=== PATIENT | female | born 1970 | race Caucasian/White ===

== ENCOUNTER 2020-06-21 16:04 | Emergency (ER) | payer BC, SELFPAY ==
[2020-06-21] VITALS (7 sets, daily range): BP systolic 146–151; BP diastolic 77–85; PULSE 75–100; RESP 15–32; TEMP 36.3; O2SAT 91–98; BMI 30.2
--- NOTE | 2020-06-21 16:55 | ECG_ITS ---
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 Measurements Intervals Elizabeth Rate: 81 P: OR: -1 QRS: 18 QRSD: 100 T: 177 QT: 391 QTc: 455 Interpretive Statements Indeterminate rhythm because of baseline artifact MODERATE ST DEPRESSION [0.05+ mV ST DEPRESSION] Compared to ECG 04/15/2019 02:45:14 ST (T wave) deviation now present Sinus bradycardia no longer present Electronically Signed On 06-23-2020 19:31:00 CDT by Nicolás Cardoso M.D. [id number]
--- NOTE | 2020-06-21 16:55 | XRR_ITS ---
PROCEDURE INFORMATION: Exam: XR Chest, 1 View Exam date and time: 06/21/2020 4:58 PM Age: 50 years old Clinical indication: Cough and shortness of breath and wheezing; Additional info: Dyspnea TECHNIQUE: Imaging protocol: XR of the chest Views: 1 view. COMPARISON: CR Chest 1 [place] [id number] 04/14/2019 9:29 PM FINDINGS: Lungs: Unremarkable. No consolidation. Pleural space: Unremarkable. No pleural effusion. No pneumothorax. Heart/Mediastinum: Unremarkable. No cardiomegaly. Bones/joints: Unremarkable. XR/XR chest 1V portable [id number] IMPRESSION: No acute findings.
--- NOTE | 2020-06-21 17:12 | W.ED.SOB ---
Documented by User: Nasrin Aranda MD 06/23/20 13:23 HPI - SOB/Dyspnea General: Chief Complaint: Shortness of Breath/Dyspnea Stated Complaint: sob Time Seen by Provider: 06/21/20 16:33 History of Present Illness: HPI Narrative: This patient is a 50-year-old female who presents today with severe shortness of breath. She has a history of COPD but has never had anything like this before. 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 She says that she actually did the swab on 1 of her coworkers who was positive. She herself had a swab done on Tuesday, the same day that her symptoms started, and it was negative. She said there during the 15-minute bedside test at her facility. She is also seen her doctor on Tuesday and was put on doxycycline and prednisone. She is not getting any better. She uses an inhaler on a daily basis but does not have a rescue inhaler. She does not use oxygen at home. She checked her oxygen at work 1 night and it was in the mid 80s. Today on room air she is in the low 90s. She is clearly struggling. MD elicited complaint: shortness of breath, cough and chest pain (Soreness from breathing so hard) Pertinent past history: COPD Onset (ago): day(s) (6) Timing: constant Severity: severe Exacerbating factors: lying flat, exertion and talking Known history of: COPD Associated symptoms: Reports nausea; Deny abdominal pain, chest pain, fever(s) or vomiting Review of Systems General: Reports: 10 or more systems reviewed and unremarkable except in HPI and below Const: Reports: chills, fatigue and malaise; Denies: fever(s) Eyes: Denies: change in vision ENMT: Denies: odynophagia Card: Denies: chest pain or swelling of feet/ankles Resp: Reports: dyspnea, non-productive cough, wheezing and pain on inspiration; Denies: productive cough GI: Reports: nausea and diarrhea; Denies: abdominal pain or vomiting : Denies: flank pain or difficulty voiding Musc: Denies: neck pain or back pain Skin/Breast: Denies: rash Neuro: Denies: headache(s), numbness in extremities or weakness in extremities Daniel/Lymph: Denies: easy bruising or easy bleeding PFSH ED PFSH: Medical History ASHD (arteriosclerotic heart disease) CHF (congestive heart failure) Easy bruising Hyperlipidemia Hypertension Migraine Right carotid bruit Surgical History H/O resection of stomach H/O: hysterectomy Hx of appendectomy Hx of cholecystectomy Hx of spinal fusion Family History Other CHF (congestive heart failure) Social History Smoking and tobacco status: current every day smoker Alcohol intake: never Physical Exam Const: COMMON NORMALS: patient oriented x3, no limitations and alert GENERAL APPEARANCE: cooperative, in distress and anxious HENMT: HEAD & SCALP: normal to inspection FACE & SINUS: normal facial exam Eye: GENERAL EYE: appearance normal, both eyes and all related structures Neck/C-Spine: COMMON NORMALS: supple, no meningeal signs and no JVD Chest: COMMONS NORMALS: normal inspection of the chest Resp: COMMON NORMALS: normal respiratory effort and No use of accessory muscles AUSCULTATION: wheezes (Severe) throughout and diminished lung sounds Cardio: COMMON NORMALS: no JVD, regular rate, regular rhythm and No murmurs present (Cardio) RATE: regular rate RHYTHM: regular rhythm GI: COMMON NORMALS: Normal to inspection, nondistended, normoactive bowel sounds present, Soft to palpation and non-tender INSPECTION: Yes normal to inspection AUSCULTATION: Yes normoactive bowel sounds PALPATION: Yes Soft to palpation Back/Pelvis: COMMON NORMALS: thoracic and lumbar spine normal to inspection Extremity: COMMON NORMALS: normal to inspection Neuro: COMMON NORMALS: patient oriented x3, moves all extremities, no focal motor deficits and no sensory deficits noted SENSORIUM/ORIENTATION: Yes alert MENINGEAL SIGNS: Yes no meningeal signs Psych: COMMON NORMALS: mental status grossly normal, cooperative and normal affect Skin: COMMON NORMALS: no rashes or lesions noted and turgor normal GENERAL SKIN EXAM: no rashes or lesions noted and turgor normal Course Vital Signs: Vital signs: Vital Signs Temperature 97.3 F L 06/21/20 16:22 Pulse Rate 94 06/21/20 20:23 Respiratory Rate 15 06/21/20 20:23 Blood Pressure 149/77 06/21/20 20:23 Pulse Oximetry 91 06/21/20 20:23 MDM - SOB/Dyspnea Lab Data: Labs: Lab Results 06/21/20 06/21/20 06/21/20 Range/Units 17:33 17:33 17:33 WBC 19.0 H (4.0-10.0) 10^3/ uL RBC 4.47 (4.1-5.3) 10^6/u L Hgb 13.7 (11.5-15.3) g/dL Hct 42.5 (37.0-47.0) % MCV 95.1 (81-99) fL MCH 30.6 (28.0-34.0) pg MCHC 32.2 (30.0-36.0) g/dL RDW 14.3 (12.1-15.1) % Plt Count 259 (130-400) 10^3/c mm MPV 10.2 (7.4-10.4) fL Neut % (Auto) 79.7 % Lymph % (Auto) 10.1 % [place] % (Auto) 9.1 % Eos % (Auto) 0.1 % Baso % (Auto) 0.2 % Neut # (Auto) 15.11 H (1.8-7.7) 10^3/u L Lymph # (Auto) 1.9 (0.8-4.8) 10^3/u L [place] # (Auto) 1.7 H (0.2-0.9) 10^3/u L Eos # (Auto) 0.0 (0.0-0.8) 10^3/u L Baso # (Auto) 0.0 (0.0-0.1) 10^3/u L Nucleated RBC % (a uto) 0 % Nucleated RBCs # 0.0 /100WBC PT Cancelled INR Cancelled D-Dimer Cancelled Sodium Cancelled Potassium Cancelled Chloride Cancelled Carbon Dioxide Cancelled Anion Gap Cancelled BUN Cancelled Creatinine Cancelled GFR Calculation Cancelled Glucose Cancelled Calculated Osmolal ity Cancelled Lactic Acid Calcium Cancelled Magnesium Cancelled Total Bilirubin Cancelled AST Cancelled ALT Cancelled Alkaline Phosphata se Cancelled Troponin T Gen 5 n g/L (0-10) ng/L C-Reactive Protein Cancelled NT-Pro-B Natriuret Pep Cancelled Total Protein Cancelled Albumin Cancelled Globulin Cancelled Procalcitonin Cancelled Influenza Type A A g (Negative) Influenza Type B A g (Negative) SARS-CoV-2 Ag (Rap id) (Negative) 06/21/20 06/21/20 06/21/20 Range/Units 17:33 17:39 17:52 WBC (4.0-10.0) 10^3/ uL RBC (4.1-5.3) 10^6/u L Hgb (11.5-15.3) g/dL Hct (37.0-47.0) % MCV (81-99) fL MCH (28.0-34.0) pg MCHC (30.0-36.0) g/dL RDW (12.1-15.1) % Plt Count (130-400) 10^3/c mm MPV (7.4-10.4) fL Neut % (Auto) % Lymph % (Auto) % [place] % (Auto) % Eos % (Auto) % Baso % (Auto) % Neut # (Auto) (1.8-7.7) 10^3/u L Lymph # (Auto) (0.8-4.8) 10^3/u L [place] # (Auto) (0.2-0.9) 10^3/u L Eos # (Auto) (0.0-0.8) 10^3/u L Baso # (Auto) (0.0-0.1) 10^3/u L Nucleated RBC % (a uto) % Nucleated RBCs # /100WBC PT INR D-Dimer Sodium Potassium Chloride Carbon Dioxide Anion Gap BUN Creatinine GFR Calculation Glucose Calculated Osmolal ity Lactic Acid Cancelled Calcium Magnesium Total Bilirubin AST ALT Alkaline Phosphata se Troponin T Gen 5 n g/L 14 H (0-10) ng/L C-Reactive Protein NT-Pro-B Natriuret Pep Total Protein Albumin Globulin Procalcitonin Influenza Type A A g (Negative) Influenza Type B A g (Negative) SARS-CoV-2 Ag (Rap id) Negative (Negative) 06/21/20 06/21/20 06/21/20 Range/Units 17:52 17:52 17:52 WBC (4.0-10.0) 10^3/ uL RBC (4.1-5.3) 10^6/u L Hgb (11.5-15.3) g/dL Hct (37.0-47.0) % MCV (81-99) fL MCH (28.0-34.0) pg MCHC (30.0-36.0) g/dL RDW (12.1-15.1) % Plt Count (130-400) 10^3/c mm MPV (7.4-10.4) fL Neut % (Auto) % Lymph % (Auto) % [place] % (Auto) % Eos % (Auto) % Baso % (Auto) % Neut # (Auto) (1.8-7.7) 10^3/u L Lymph # (Auto) (0.8-4.8) 10^3/u L [place] # (Auto) (0.2-0.9) 10^3/u L Eos # (Auto) (0.0-0.8) 10^3/u L Baso # (Auto) (0.0-0.1) 10^3/u L Nucleated RBC % (a uto) % Nucleated RBCs # /100WBC PT 12.30 INR 0.88 D-Dimer 0.29 Sodium 140 Potassium 3.5 Chloride 103 Carbon Dioxide 22 Anion Gap 18.5 BUN 16 Creatinine 0.8 GFR Calculation 75.9 L Glucose 126 H Calculated Osmolal ity 293 Lactic Acid 1.3 Calcium 9.3 Magnesium 2.1 Total Bilirubin 0.2 AST 15 ALT 11 Alkaline Phosphata se 107 H Troponin T Gen 5 n g/L (0-10) ng/L C-Reactive Protein 38.3 H NT-Pro-B Natriuret Pep 204 H Total Protein 7.5 Albumin 4.1 Globulin 3.4 Procalcitonin 0.05 Influenza Type A A g (Negative) Influenza Type B A g (Negative) SARS-CoV-2 Ag (Rap id) (Negative) 06/21/20 Range/Units 18:47 WBC (4.0-10.0) 10^3/ uL RBC (4.1-5.3) 10^6/u L Hgb (11.5-15.3) g/dL Hct (37.0-47.0) % MCV (81-99) fL MCH (28.0-34.0) pg MCHC (30.0-36.0) g/dL RDW (12.1-15.1) % Plt Count (130-400) 10^3/c mm MPV (7.4-10.4) fL Neut % (Auto) % Lymph % (Auto) % [place] % (Auto) % Eos % (Auto) % Baso % (Auto) % Neut # (Auto) (1.8-7.7) 10^3/u L Lymph # (Auto) (0.8-4.8) 10^3/u L [place] # (Auto) (0.2-0.9) 10^3/u L Eos # (Auto) (0.0-0.8) 10^3/u L Baso # (Auto) (0.0-0.1) 10^3/u L Nucleated RBC % (a uto) % Nucleated RBCs # /100WBC PT INR D-Dimer Sodium Potassium Chloride Carbon Dioxide Anion Gap BUN Creatinine GFR Calculation Glucose Calculated Osmolal ity Lactic Acid Calcium Magnesium Total Bilirubin AST ALT Alkaline Phosphata se Troponin T Gen 5 n g/L (0-10) ng/L C-Reactive Protein NT-Pro-B Natriuret Pep Total Protein Albumin Globulin Procalcitonin Influenza Type A A g Negative (Negative) Influenza Type B A g Negative (Negative) SARS-CoV-2 Ag (Rap id) (Negative) Discharge Plan Discharge Patient Disposition: Home Clinical Impression: Acute exacerbation of chronic obstructive airways disease Condition: Stable Prescriptions: New prednisone 50 mg tablet 50 mg PO DAILY Qty: 5 RF: 0 No Action albuterol sulfate [ProAir HFA] 90 mcg/actuation HFA aerosol inhaler 2 puff INHALATION Q4H PRN (Reason: Shortness Of Breath) RF: 0 nitroglycerin [Nitrostat] 0.4 mg tablet, sublingual 0.4 mg SUBLINGUAL Q5M PRN (Reason: Chest Pain) RF: 0 furosemide 40 mg tablet 40 mg PO BID RF: 0 trazodone 50 mg tablet 50 mg PO BEDTIME PRN (Reason: Sleep) RF: 0 metoprolol tartrate 25 mg tablet 25 mg PO BID RF: 0 alprazolam 1 mg tablet 1 mg PO TID PRN (Reason: UNKNOWN) RF: 0 tramadol 50 mg tablet 50 mg PO BID PRN (Reason: Pain) RF: 0 budesonide-formoterol [Symbicort] 160-4.5 mcg/actuation HFA aerosol inhaler 2 puff INHALATION BID RF: 0 olmesartan [Benicar] 20 mg tablet 20 mg PO DAILY 30 Days Qty: 30 RF: 5 rosuvastatin 10 mg tablet 10 mg PO DAILY Qty: 30 RF: 3 clopidogrel 75 mg tablet 75 mg PO DAILY Qty: 30 RF: 3 metformin 500 mg tablet See Rx Instructions .ROUTE .COMPLEX RF: 0 promethazine-DM 6.25-15 mg/5 mL syrup 5 ml PO Q4H PRN (Reason: Cough) RF: 0 potassium chloride 10 mEq capsule, extended release 30 meq PO DAILY RF: 0 prednisone 10 mg tablet See Rx Instructions .ROUTE .COMPLEX RF: 0 gabapentin 600 mg Tablet 600 mg PO QID RF: 0 hydrocodone-acetaminophen 10-325 mg tablet 1 - 2 tab PO QID PRN (Reason: Pain) RF: 0 doxycycline hyclate 100 mg tablet 100 mg PO BID RF: 0 Discharge Orders: Discharge Order (Routine); Ordered 06/21/20 Ordered By: Dom Turpin Referrals: Lucia Lujan DO [Primary Care Provider] - 1-3 days Discharge Diet: Advance as tolerated Discharge Activity: Resume usual activity Patient Instructions: Chronic Obstructive Pulmonary Disease (ED) Discharge Date/Time: 06/21/20 20:47 Coding Level of Care Code 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 Chg Fwd Exam Comprehensive Documented by User: Dom Turpin MD 06/21/20 20:55 HPI - SOB/Dyspnea General: Chief Complaint: Shortness of Breath/Dyspnea Stated Complaint: sob Time Seen by Provider: 06/21/20 16:33 PFSH ED PFSH: Medical History ASHD (arteriosclerotic heart disease) CHF (congestive heart failure) Easy bruising Hyperlipidemia Hypertension Migraine Right carotid bruit Surgical History H/O resection of stomach H/O: hysterectomy Hx of appendectomy Hx of cholecystectomy Hx of spinal fusion Family History Other CHF (congestive heart failure) Social History Smoking and tobacco status: current every day smoker Alcohol intake: never Course Vital Signs: Vital signs: Vital Signs Temperature 97.3 F L 06/21/20 16:22 Pulse Rate 94 06/21/20 20:23 Respiratory Rate 15 06/21/20 20:23 Blood Pressure 149/77 06/21/20 20:23 Pulse Oximetry 91 06/21/20 20:23 MDM - SOB/Dyspnea MDM Narrative: Medical decision making narrative: Erica presents for COPD exacerbation. She states she feels much improved after breathing treatment. I assessed her and her oxygen was still 90% and she had wheezing. I recommended admission but she states she would like to try steroids at home. 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 I informed her if she has worsening she is to return immediately. She understands and agrees to plan. Lab Data: Labs: Lab Results 06/21/20 06/21/20 06/21/20 Range/Units 17:33 17:33 17:33 WBC 19.0 H (4.0-10.0) 10^3/ uL RBC 4.47 (4.1-5.3) 10^6/u L Hgb 13.7 (11.5-15.3) g/dL Hct 42.5 (37.0-47.0) % MCV 95.1 (81-99) fL MCH 30.6 (28.0-34.0) pg MCHC 32.2 (30.0-36.0) g/dL RDW 14.3 (12.1-15.1) % Plt Count 259 (130-400) 10^3/c mm MPV 10.2 (7.4-10.4) fL Neut % (Auto) 79.7 % Lymph % (Auto) 10.1 % [place] % (Auto) 9.1 % Eos % (Auto) 0.1 % Baso % (Auto) 0.2 % Neut # (Auto) 15.11 H (1.8-7.7) 10^3/u L Lymph # (Auto) 1.9 (0.8-4.8) 10^3/u L [place] # (Auto) 1.7 H (0.2-0.9) 10^3/u L Eos # (Auto) 0.0 (0.0-0.8) 10^3/u L Baso # (Auto) 0.0 (0.0-0.1) 10^3/u L Nucleated RBC % (a uto) 0 % Nucleated RBCs # 0.0 /100WBC PT Cancelled INR Cancelled D-Dimer Cancelled Sodium Cancelled Potassium Cancelled Chloride Cancelled Carbon Dioxide Cancelled Anion Gap Cancelled BUN Cancelled Creatinine Cancelled GFR Calculation Cancelled Glucose Cancelled Calculated Osmolal ity Cancelled Lactic Acid Calcium Cancelled Magnesium Cancelled Total Bilirubin Cancelled AST Cancelled ALT Cancelled Alkaline Phosphata se Cancelled Troponin T Gen 5 n g/L (0-10) ng/L C-Reactive Protein Cancelled NT-Pro-B Natriuret Pep Cancelled Total Protein Cancelled Albumin Cancelled Globulin Cancelled Procalcitonin Cancelled Influenza Type A A g (Negative) Influenza Type B A g (Negative) SARS-CoV-2 Ag (Rap id) (Negative) 06/21/20 06/21/20 06/21/20 Range/Units 17:33 17:39 17:52 WBC (4.0-10.0) 10^3/ uL RBC (4.1-5.3) 10^6/u L Hgb (11.5-15.3) g/dL Hct (37.0-47.0) % MCV (81-99) fL MCH (28.0-34.0) pg MCHC (30.0-36.0) g/dL RDW (12.1-15.1) % Plt Count (130-400) 10^3/c mm MPV (7.4-10.4) fL Neut % (Auto) % Lymph % (Auto) % [place] % (Auto) % Eos % (Auto) % Baso % (Auto) % Neut # (Auto) (1.8-7.7) 10^3/u L Lymph # (Auto) (0.8-4.8) 10^3/u L [place] # (Auto) (0.2-0.9) 10^3/u L Eos # (Auto) (0.0-0.8) 10^3/u L Baso # (Auto) (0.0-0.1) 10^3/u L Nucleated RBC % (a uto) % Nucleated RBCs # /100WBC PT INR D-Dimer Sodium Potassium Chloride Carbon Dioxide Anion Gap BUN Creatinine GFR Calculation Glucose Calculated Osmolal ity Lactic Acid Cancelled Calcium Magnesium Total Bilirubin AST ALT Alkaline Phosphata se Troponin T Gen 5 n g/L 14 H (0-10) ng/L C-Reactive Protein NT-Pro-B Natriuret Pep Total Protein Albumin Globulin Procalcitonin Influenza Type A A g (Negative) Influenza Type B A g (Negative) SARS-CoV-2 Ag (Rap id) Negative (Negative) 06/21/20 06/21/20 06/21/20 Range/Units 17:52 17:52 17:52 WBC (4.0-10.0) 10^3/ uL RBC (4.1-5.3) 10^6/u L Hgb (11.5-15.3) g/dL Hct (37.0-47.0) % MCV (81-99) fL MCH (28.0-34.0) pg MCHC (30.0-36.0) g/dL RDW (12.1-15.1) % Plt Count (130-400) 10^3/c mm MPV (7.4-10.4) fL Neut % (Auto) % Lymph % (Auto) % [place] % (Auto) % Eos % (Auto) % Baso % (Auto) % Neut # (Auto) (1.8-7.7) 10^3/u L Lymph # (Auto) (0.8-4.8) 10^3/u L [place] # (Auto) (0.2-0.9) 10^3/u L Eos # (Auto) (0.0-0.8) 10^3/u L Baso # (Auto) (0.0-0.1) 10^3/u L Nucleated RBC % (a uto) % Nucleated RBCs # /100WBC PT 12.30 INR 0.88 D-Dimer 0.29 Sodium 140 Potassium 3.5 Chloride 103 Carbon Dioxide 22 Anion Gap 18.5 BUN 16 Creatinine 0.8 GFR Calculation 75.9 L Glucose 126 H Calculated Osmolal ity 293 Lactic Acid 1.3 Calcium 9.3 Magnesium 2.1 Total Bilirubin 0.2 AST 15 ALT 11 Alkaline Phosphata se 107 H Troponin T Gen 5 n g/L (0-10) ng/L C-Reactive Protein 38.3 H NT-Pro-B Natriuret Pep 204 H Total Protein 7.5 Albumin 4.1 Globulin 3.4 Procalcitonin 0.05 Influenza Type A A g (Negative) Influenza Type B A g (Negative) SARS-CoV-2 Ag (Rap id) (Negative) 06/21/20 Range/Units 18:47 WBC (4.0-10.0) 10^3/ uL RBC (4.1-5.3) 10^6/u L Hgb (11.5-15.3) g/dL Hct (37.0-47.0) % MCV (81-99) fL MCH (28.0-34.0) pg MCHC (30.0-36.0) g/dL RDW (12.1-15.1) % Plt Count (130-400) 10^3/c mm MPV (7.4-10.4) fL Neut % (Auto) % Lymph % (Auto) % [place] % (Auto) % Eos % (Auto) % Baso % (Auto) % Neut # (Auto) (1.8-7.7) 10^3/u L Lymph # (Auto) (0.8-4.8) 10^3/u L [place] # (Auto) (0.2-0.9) 10^3/u L Eos # (Auto) (0.0-0.8) 10^3/u L Baso # (Auto) (0.0-0.1) 10^3/u L Nucleated RBC % (a uto) % Nucleated RBCs # /100WBC PT INR D-Dimer Sodium Potassium Chloride Carbon Dioxide Anion Gap BUN Creatinine GFR Calculation Glucose Calculated Osmolal ity Lactic Acid Calcium Magnesium Total Bilirubin AST ALT Alkaline Phosphata se Troponin T Gen 5 n g/L (0-10) ng/L C-Reactive Protein NT-Pro-B Natriuret Pep Total Protein Albumin Globulin Procalcitonin Influenza Type A A g Negative (Negative) Influenza Type B A g Negative (Negative) SARS-CoV-2 Ag (Rap id) (Negative) Imaging Data^: CXR: Attestation: I personally reviewed and interpreted this imaging study as follows: Radiologist's impression: [address] [address] XRay Report Signed Patient: Erica Kwong Unit #: [id number] : 1970 Age/Sex: 50 / F ADM Date: 06/21/20 Loc: ER Room/Bed: Attending Dr: Ordering Provider/Ordering MD: Nasrin Aranda MD Date of Service: 06/21/20 Procedure(s): XR chest 1V portable [id number] Accession Number(s): [id number] Report Number: [id number] PROCEDURE INFORMATION: Exam: XR Chest, 1 View Exam date and time: 06/21/2020 4:58 PM Age: 50 years old Clinical indication: Cough and shortness of breath and wheezing; Additional info: Dyspnea TECHNIQUE: Imaging protocol: XR of the chest Views: 1 view. COMPARISON: CR Chest 1 [place] [id number] 04/14/2019 9:29 PM FINDINGS: Lungs: Unremarkable. No consolidation. Pleural space: Unremarkable. No pleural effusion. No pneumothorax. Heart/Mediastinum: Unremarkable. No cardiomegaly. Bones/joints: Unremarkable. XR/XR chest 1V portable [id number] IMPRESSION: No acute findings. Discharge Plan Discharge Patient Disposition: Home Clinical Impression: Acute exacerbation of chronic obstructive airways disease Condition: Stable Prescriptions: New prednisone 50 mg tablet 50 mg PO DAILY Qty: 5 RF: 0 No Action albuterol sulfate [ProAir HFA] 90 mcg/actuation HFA aerosol inhaler 2 puff INHALATION Q4H PRN (Reason: Shortness Of Breath) RF: 0 nitroglycerin [Nitrostat] 0.4 mg tablet, sublingual 0.4 mg SUBLINGUAL Q5M PRN (Reason: Chest Pain) RF: 0 furosemide 40 mg tablet 40 mg PO BID RF: 0 trazodone 50 mg tablet 50 mg PO BEDTIME PRN (Reason: Sleep) RF: 0 metoprolol tartrate 25 mg tablet 25 mg PO BID RF: 0 alprazolam 1 mg tablet 1 mg PO TID PRN (Reason: UNKNOWN) RF: 0 tramadol 50 mg tablet 50 mg PO BID PRN (Reason: Pain) RF: 0 budesonide-formoterol [Symbicort] 160-4.5 mcg/actuation HFA aerosol inhaler 2 puff INHALATION BID RF: 0 olmesartan [Benicar] 20 mg tablet 20 mg PO DAILY 30 Days Qty: 30 RF: 5 rosuvastatin 10 mg tablet 10 mg PO DAILY Qty: 30 RF: 3 clopidogrel 75 mg tablet 75 mg PO DAILY Qty: 30 RF: 3 metformin 500 mg tablet See Rx Instructions .ROUTE .COMPLEX RF: 0 promethazine-DM 6.25-15 mg/5 mL syrup 5 ml PO Q4H PRN (Reason: Cough) RF: 0 potassium chloride 10 mEq capsule, extended release 30 meq PO DAILY RF: 0 prednisone 10 mg tablet See Rx Instructions .ROUTE .COMPLEX RF: 0 gabapentin 600 mg Tablet 600 mg PO QID RF: 0 hydrocodone-acetaminophen 10-325 mg tablet 1 - 2 tab PO QID PRN (Reason: Pain) RF: 0 doxycycline hyclate 100 mg tablet 100 mg PO BID RF: 0 Discharge Orders: Discharge Order (Routine); Ordered 06/21/20 Ordered By: Dom Turpin Referrals: Lucia Lujan DO [Primary Care Provider] - 1-3 days Discharge Diet: Advance as tolerated Discharge Activity: Resume usual activity Patient Instructions: Chronic Obstructive Pulmonary Disease (ED) Discharge Date/Time: 06/21/20 20:47 Coding Level of Care Code 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 Chg Fwd Exam Comprehensive
[2020-06-21 17:44] LABS: Basophils % 0.2 %; Eosinophils % 0.1 %; Hematocrit 42.5 % (37.0-47.0); Hemoglobin 13.7 g/dL (11.5-15.3); Lymphocytes # 1.9 10^3/uL (0.8-4.8); Lymphocytes % 10.1 %; Mean Corpuscular HGB Conc 32.2 g/dL (30.0-36.0); Mean Corpuscular Hemoglobin 30.6 pg (28.0-34.0); Mean Corpuscular Volume 95.1 fL (81-99); Mean Platelet Volume 10.2 fL (7.4-10.4); Monocytes # 1.7 10^3/uL (0.2-0.9); Monocytes % 9.1 %; Neutrophils # 15.11 10^3/uL (1.8-7.7); Neutrophils % 79.7 %; Nucleated Red Blood Cells % 0 %; Platelet Count 259 10^3/cmm (130-400); Red Blood Count 4.47 10^6/uL (4.1-5.3); Red Cell Distribution Width 14.3 % (12.1-15.1)
[2020-06-21] MEDS: diphenhydrAMINE 50 mg/mL SDV 1mL IVP (17:46)
[2020-06-21] MEDS: magnesium sulfate premix 2 GM/50 ML PIGGYBACK IV (17:47)
[2020-06-21] MEDS: dexamethasone 10 mg/mL INJ IVP (17:47)
[2020-06-21] MEDS: sodium chloride 0.9% 1,000 ML 150 ML IV (17:49)
[2020-06-21] MEDS: albuterol 8 gm MDI 4 PUFF INHALATION (17:50)
[2020-06-21 18:21] LABS: INR 0.88 (0.8-1.2)
[2020-06-21 18:23] LABS: D Dimer 0.29 ug/mIFEU (0-0.59)
[2020-06-21 18:25] LABS: SARS Covid-2 Antigen Negative (Negative)
[2020-06-21 18:30] LABS: Lactic Sepsis W/Reflex 1.3 mmol/L (0.5-2.2)
[2020-06-21 18:32] LABS: Troponin T (5th) Once 14 ng/L (0-10)
[2020-06-21] MEDS: ondansetron 2 mg/ML SDV 2 mL 4 MG IVP (18:43)
[2020-06-21] MEDS: promethazine-cod syrup 6.25-10mg/5 mL UDC PO (18:43)
[2020-06-21 19:18] LABS: NT Pro B Type Natriuretic Pept 204 pg/mL (0-125); Procalcitonin 0.05 ng/mL (0-0.5)
[2020-06-21] MEDS: ipratropium-albuterol 3 mL Neb INHALATION (19:18)
--- NOTE | 2020-06-21 19:28 | PC.NURSE ---
report received from GLADIS Salazar and care transferred to GLADIS Flores
[2020-06-21 19:29] LABS: Alanine Aminotransferase 11 U/L (0-33); Albumin Level 4.1 g/dL (3.5-5.2); Alkaline Phosphatase 107 IU/L (35-105); Anion Gap 18.5 (5-19); Aspartate Amino Transferase 15 U/L (0-32); Blood Urea Nitrogen 16 mg/dL (6-20); C Reactive Protein 38.3 mg/L (0.0-4.9); Calcium 9.3 mg/dL (8.5-10.5); Carbon Dioxide 22 mmol/L (22-29); Chloride 103 mmol/L (98-107); Globulin 3.4 g/dL (1.3-4.6); Glomerular Filtration Rate 75.9 mL/min (90-130); Glucose 126 mg/dL (65-115); Magnesium 2.1 mg/dL (1.7-2.3); Osmolality Calculated 293 mOsm/kg (285-295); Potassium 3.5 mmol/L (3.5-5.1); Sodium 140 mmol/L (136-145); Total Bilirubin 0.2 mg/dL (0.15-1.2); Total Protein 7.5 g/dL (6.6-8.7)
[2020-06-21 19:42] LABS: Influenza A by IFA Negative (Negative); Influenza B by IFA Negative (Negative)
[2020-06-21] MEDS: diphenhydrAMINE 50 mg/mL SDV 1mL 25 MG IVP (20:03)
[2020-06-21] MEDS: metoclopramide 5 mg/mL SDV 2 mL IVP (20:03)
== END 2020-06-21 20:47 | disposition home or self-care (01) ==
PROVIDERS: Emergency Medicine; Emergency Provider Emergency Medicine; PCP Family Medicine
DX: J44.1 Chronic obstructive pulmonary disease with (acute) exacerbation (principal); Z79.02 Long term (current) use of antithrombotics/antiplatelets; I11.0 Hypertensive heart disease with heart failure; I50.9 Heart failure, unspecified; E78.5 Hyperlipidemia, unspecified; F17.210 Nicotine dependence, cigarettes, uncomplicated
CPT/HCPCS: 12345; 36415; 71045; 80053; 83605; 83735; 83880; 84145; 84484; 85025; 85378; 85610; 86140; 87426; 87804; 93005; 94640; 96365; 96375; 99283; 99284; J1100; J1200; J2405; J2765; J3475; J3535; J7030; J7611